=== PATIENT | male | born 1980 ===

== ENCOUNTER 2018-11-21 16:46 | Emergency (ER) | payer MEDICARE ==
[2018-11-21 16:57] VITALS: TEMP 98.1; O2SAT 98
--- NOTE | 2018-11-21 17:06 | ED PDOC ---
Upper Extremity Pain/Injury Time Seen by Provider: 11/21/18 17:00 Chief Complaint (Nursing): Upper Extremity Problem/Injury Chief Complaint (Provider): Left Elbow Pain History Per: Patient History/Exam Limitations: no limitations Onset/Duration Of Symptoms: Days (x2) Current Symptoms Are (Timing): Still Present Additional Complaint(s): 38 year old male presents to the ED for evaluation of left elbow pain for the past two days. Patient denies any trauma or injury, and states the pain is unrelieved with Motrin. Notes decreased ROM of elbow. PMD: none provided Past Medical History Reviewed: Historical Data, Nursing Documentation, Vital Signs Vital Signs: Last Vital Signs Temp 98.1 F 11/21/18 16:55 Pulse 96 H 11/21/18 16:55 Resp 18 11/21/18 16:55 BP 160/100 H 11/21/18 16:55 Pulse Ox 98 11/21/18 16:55 - Medical History PMH: No Chronic Diseases - Surgical History Surgical History: No Surg Hx - Family History Family History: States: Unknown Family Hx - Home Medications Home Medications: Ambulatory Orders Medication Instructions Recorded Diclofenac Potassium 50 mg PO BID #20 tablet 11/21/18 - Allergies Allergies/Adverse Reactions: Allergies Allergy/AdvReac Type Severity Reaction Status Date / Time No Known Allergies Allergy Verified 11/21/18 16:55 Review of Systems ROS Statement: Except As Marked, All Systems Reviewed And Found Negative Musculoskeletal: Positive for: Other (left elbow pain) Physical Exam - Reviewed Nursing Documentation Reviewed: Yes Vital Signs Reviewed: Yes - Physical Exam Appears: Positive for: No Acute Distress Cardiovascular/Chest: Positive for: Regular Rate, Rhythm Respiratory: Positive for: Normal Breath Sounds. Negative for: Respiratory Distress Extremity: Positive for: Tenderness (over left lateral epicondylitis). Negative for: Normal ROM (decreased ROM of left elbow secondary to pain), Deformity Neurologic/Psych: Positive for: Alert, Oriented (x3). Negative for: Motor/Sensory Deficits - ECG O2 Sat by Pulse Oximetry: 98 (RA) Pulse Ox Interpretation: Normal Medical Decision Making Medical Decision Making: Time: 1705 Initial Impression: tennis elbow Initial Plan: --Decadron 10mg IM --Toradol 60mg IM --Tyelnol 650mg PO Clinical Tennis Elbow presentation; no trauma Pt will be referred to ortho clinic and given rx for diclofenac Scribe Attestation: Documented by Nanette Crawford, acting as a scribe for Gume Mcconnell PA-C. Provider Scribe Attestation: All medical record entries made by the Scribe were at my direction and personally dictated by me. I have reviewed the chart and agree that the record accurately reflects my personal performance of the history, physical exam, medical decision making, and the department course for this patient. I have also personally directed, reviewed, and agree with the discharge instructions and disposition. Disposition - Clinical Impression Clinical Impression: Tennis elbow - Patient ED Disposition Is Patient to be Admitted: No Doctor Will See Patient In The: Office Counseled Patient/Family Regarding: Diagnosis, Need For Followup, Rx Given - Disposition Referrals: [facility] [Outside] [facility] [place] [Outside] Disposition: Routine/Home Disposition Time: 17:30 Condition: STABLE Prescriptions: Diclofenac Potassium 50 mg PO BID #20 tablet Instructions: Lateral Epicondylitis (DC), Lateral Epicondylitis, Lateral Epicondylitis Exercises Forms: [facility] (Urdu)
[2018-11-21 18:04] VITALS: BP 156/87; PULSE 90; RESP 16
== END 2018-11-21 18:03 | disposition home or self-care (01) ==
LOC: H.ER 16:46
DX: M77.12 Lateral epicondylitis, left elbow (principal)
CPT/HCPCS: 96372; 99283; J1100; J1885